=== PATIENT | male | born 2000 | race African-American/Black ===

== ENCOUNTER 2023-08-12 12:59 | Emergency (ER) | payer OTHER ==
[~2023-08-12] VITALS: Ht 193 cm; Wt 77.8 kg
[2023-08-12] MEDS ORDERED: DOXY-443 PO (14:49)
[2023-08-12] MEDS ORDERED: cefTRIAXone 500MG VIAL IM ONE (14:50)
[2023-08-12] MEDS ORDERED: DOXYCYCLINE HYCLATE 100MG TABLET PO ONE (14:50)
[2023-08-12] MEDS ORDERED: LIDOCAINE 1% SDV 5ML VIAL DILUENT ONE (14:50)
[2023-08-12 15:05] VITALS: BP 129/85; TEMP 98.4; O2SAT 100
== END 2023-08-12 15:19 | disposition home or self-care (01) ==
LOC: M ED 12:59
DX: Z11.3 Encounter for screening for infections with a predominantly sexual mode of transmission (principal)
CPT/HCPCS: 87490; 87590; 87661; 96372; 99283; J0696

== ENCOUNTER 2023-09-02 14:29 | Emergency (ER) | payer OTHER ==
[~2023-09-02] VITALS: Ht 193 cm; Wt 78.2 kg
[~2023-09-02 14:29] MED LIST: DOXY-443 PO
[2023-09-02 17:11] LABS: CHLAMYDIA DNA AMPLIFICATION NEGATIVE (NEGATIVE); GC DNA AMPLIFICATION NEGATIVE (NEGATIVE)
[2023-09-02] MEDS ORDERED: VALA1TAB5 PO (17:23)
[2023-09-02 17:32] VITALS: BP 122/70; TEMP 97.8; O2SAT 100
== END 2023-09-02 17:42 | disposition home or self-care (01) ==
LOC: M ED 14:29
DX: A60.02 Herpesviral infection of other male genital organs (principal)

== ENCOUNTER 2024-10-27 13:24 | Emergency (ER) | payer OTHER ==
[~2024-10-27] VITALS: Ht 190.5 cm; Wt 81.8 kg
[~2024-10-27 13:24] MED LIST changes: +DOXY-441 PO; -DOXY-443 PO; +VALA1TAB5 PO
[2024-10-27 13:28] VITALS: BP 127/71; TEMP 98.2; O2SAT 100
[2024-10-27 14:18] LABS: KETONE, URINE AUTO RFX NEGATIVE (NEGATIVE); LEUKOCYTE ESTERASE UR AUTO RFX 2+ (NEGATIVE); MUCUS, URINE RFX SMALL (NEGATIVE); NITRITE, URINE AUTO RFX NEGATIVE (NEGATIVE); RBC, URINE AUTO RFX 4 /HPF (0-3); SQUAM EPITHELIAL CELL UR AURFX 0 /HPF (0-6); WBC, URINE AUTO RFX 76 /HPF (0-3)
[2024-10-27 14:52] LABS: Trichomonas vaginalis (AMP) NOT DETECTED (NEGATIVE)
[2024-10-27 15:15] LABS: GC DNA AMPLIFICATION POSITIVE (NEGATIVE)
[2024-10-27] MEDS ORDERED: DOXY-441 PO (15:31)
[2024-10-27] MEDS: LIDOCAINE 1% SDV 5ML VIAL DILUENT ONE (15:34)
[2024-10-27] MEDS: cefTRIAXone 500MG VIAL IM ONE (15:34)
[2024-10-27] MEDS: DOXYCYCLINE HYCLATE 100MG TABLET PO ONE (15:34)
== END 2024-10-27 15:40 | disposition home or self-care (01) ==
LOC: M ED 13:24
DX: A54.9 Gonococcal infection, unspecified (principal); Z79.2 Long term (current) use of antibiotics
CPT/HCPCS: 81001; 87086; 87661; 87810; 87850; 96372; 99283; J0696